=== PATIENT | female | born 1940 | race Caucasian/White ===

== ENCOUNTER 2018-01-13 20:10 | Observation (INO) | payer OTHER ==
[~2018-01-13] VITALS: Ht 157.5 cm; Wt 63.5 kg
[~2018-01-13 20:10] MED LIST: ACT15 PO; ACT30 PO; ASPIRIN E.C.81 M1 PO; ASPIRIN325 M1 PO; ASPIRIN325 MG PO; CARVEDILOL3.125 M1 PO; COLACE100 MG PO; COZAAR50 MG PO; ENALAPRIL MALEA10 MG PO; GLIPIZIDE10 MG PO; HCTZ/LISINOPRIL1 TA1; LORATADINE10 MG PO; METFORMIN1000 M1 PO; METFORMIN850 M1 PO; NIT0.4 SL; NOR5 PO; NORCO1 TA2 PO; PENTOXIFYL XR400 M1 PO; RANEXA500 M1 PO; SIMVASTATIN10 M1; TRE400 PO
[2018-01-13 21:31] LABS: BASOPHIL % 0.4 % (0-2); PLATELET COUNT 268 x10^3mcL (130-400); RED CELL DISTRIBUTION WIDTH 13.6 % (11.5-14.5)
[2018-01-13 21:37] LABS: CALCIUM 9.1 mg/dL (8.5-10.1); CHLORIDE SERUM 105 mmol/L (98-107); CREATININE SERUM 0.6 mg/dL (0.6-1.0); GLUCOSE SERUM 140 mg/dL (74-106); POTASSIUM SERUM 4.3 mmol/L (3.5-5.1); SODIUM SERUM 141 mmol/L (136-145)
[2018-01-13 21:42] LABS: ALBUMIN 3.3 g/dL (3.4-5.0); ALKALINE PHOSPHATASE 234 U/L (46-116); ALT/SGPT 82 U/L (14-59); AST/SGOT 143 U/L (15-37); BILIRUBIN TOTAL 0.56 mg/dL (0.20-1.00); TOTAL PROTEIN, SERUM 7.3 g/dL (6.4-8.2)
[2018-01-13 22:22] LABS: microscopic required? NO
[2018-01-13 22:24] LABS: ERYTHROCYTE SED RATE 18 mm/hr (0-30)
[2018-01-13 22:37] LABS: UA SPECIFIC GRAVITY <=1.005 (1.005-1.035); urine erythrocyte NEGATIVE (NEGATIVE)
[2018-01-14] VITALS (7 sets, daily range): BP systolic 132–172; BP diastolic 44–81
[2018-01-14] MEDS ORDERED: INVOKANA100 MG PO (00:23)
[2018-01-14] MEDS ORDERED: NIFEDICAL XL30 MG PO (00:23)
[2018-01-14] MEDS ORDERED: GOOD SENSE OMEP20 MG PO (00:23)
[2018-01-14] MEDS ORDERED: MECLIZINE HYD12.5 MG PO (00:24)
[2018-01-14 01:35] LABS: MAGNESIUM 1.9 mg/dL (1.8-2.4)
[2018-01-14 01:36] LABS: CHOLESTEROL/HDL RATIO 2.4
[2018-01-14 01:45] LABS: T3 TOTAL 0.98 ng/mL
[2018-01-14 01:49] LABS: FREE T4 0.97 ng/dL (0.76-1.46); FREE THYROXINE INDEX 2.2 ug/dL (1.4-4.5); T4(THYROXINE) 6.1 ug/dL (4.7-13.3)
[2018-01-15 05:06] VITALS: BP 137/53
[2018-01-15 06:03] LABS: BASOPHIL % 0.4 % (0-2); PLATELET COUNT 245 x10^3mcL (130-400); RED CELL DISTRIBUTION WIDTH 13.6 % (11.5-14.5)
[2018-01-15 06:19] LABS: CALCIUM 8.4 mg/dL (8.5-10.1); CARBON DIOXIDE 27.7 mmol/L (21-32); CHLORIDE SERUM 111 mmol/L (98-107); CREATININE SERUM 0.5 mg/dL (0.6-1.0); GLUCOSE SERUM 71 mg/dL (74-106); POTASSIUM SERUM 4.1 mmol/L (3.5-5.1); SODIUM SERUM 144 mmol/L (136-145)
[2018-01-15 08:31] VITALS: BP 153/51
[2018-01-15] MEDS ORDERED: IBUPROFEN400 MG PO (09:25)
[2018-01-15] MEDS ORDERED: CYCLOBENZAPRINE5 MG PO (09:31)
[2018-01-15 12:26] VITALS: BP 154/54
[2018-01-15 15:15] VITALS: Ht 157.5 cm; Wt 63.5 kg
== END 2018-01-15 15:05 | disposition home or self-care (01) | DRG 78 ==
LOC: ED 20:10 → DU 01-14 00:33
PROVIDERS: Emergency Medicine; Family Medicine Sports Medicine
DX: I67.4 Hypertensive encephalopathy (principal); E44.0 Moderate protein-calorie malnutrition; G44.201 Tension-type headache, unspecified, intractable; E11.65 Type 2 diabetes mellitus with hyperglycemia; E11.51 Type 2 diabetes mellitus with diabetic peripheral angiopathy without gangrene; E03.9 Hypothyroidism, unspecified; E04.1 Nontoxic single thyroid nodule; I10 Essential (primary) hypertension; E78.5 Hyperlipidemia, unspecified; Z86.73 Personal history of transient ischemic attack (TIA), and cerebral infarction without residual deficits; Z79.84 Long term (current) use of oral hypoglycemic drugs; Z79.82 Long term (current) use of aspirin; Z68.24 Body mass index [BMI] 24.0-24.9, adult
CPT/HCPCS: 82962; 83880; 84439; G0378; J1885; J2765; J3490; J7030; Q0092

== ENCOUNTER 2018-07-01 19:05 | Emergency (ER) | payer OTHER ==
[~2018-07-01] VITALS: Ht 160 cm; Wt 63.5 kg
[~2018-07-01 19:05] MED LIST changes: +CYCLOBENZAPRINE5 MG PO; +GOOD SENSE OMEP20 MG PO; +IBUPROFEN400 MG PO; +INVOKANA100 MG PO; +MECLIZINE HYD12.5 MG PO; +NIFEDICAL XL30 MG PO
[2018-07-01 19:15] VITALS: Ht 160 cm; Wt 63.5 kg
[2018-07-01 20:10] LABS: BASOPHIL % 0.5 % (0-2); PLATELET COUNT 213 x10^3mcL (130-400); RED CELL DISTRIBUTION WIDTH 13.8 % (11.5-14.5)
[2018-07-01 20:19] LABS: CALCIUM 8.6 mg/dL (8.5-10.1); CARBON DIOXIDE 27.8 mmol/L (21-32); CHLORIDE SERUM 105 mmol/L (98-107); CREATININE SERUM 0.8 mg/dL (0.6-1.0); GLUCOSE SERUM 141 mg/dL (74-106); POTASSIUM SERUM 4.6 mmol/L (3.5-5.1); SODIUM SERUM 141 mmol/L (136-145)
[2018-07-01 20:24] LABS: ALBUMIN 3.6 g/dL (3.4-5.0); ALKALINE PHOSPHATASE 80 U/L (46-116); AST/SGOT 17 U/L (15-37); BILIRUBIN TOTAL 0.28 mg/dL (0.20-1.00); TOTAL PROTEIN, SERUM 7.1 g/dL (6.4-8.2)
[2018-07-01 20:33] LABS: ALT/SGPT 17 U/L (14-59)
[2018-07-01 21:54] VITALS: BP 128/56
== END 2018-07-01 21:54 | disposition home or self-care (01) ==
LOC: ED 19:05
PROVIDERS: Emergency Medicine
DX: G44.209 Tension-type headache, unspecified, not intractable (principal); I10 Essential (primary) hypertension; E11.9 Type 2 diabetes mellitus without complications; Z86.73 Personal history of transient ischemic attack (TIA), and cerebral infarction without residual deficits
CPT/HCPCS: 36415